=== PATIENT | female | born 1975 | race Caucasian/White ===

== ENCOUNTER 2024-08-24 06:28 | Day surgery (SDC) | payer OTHER, SELFPAY ==
[2024-08-24] MEDS: sodium chloride 0.9% 1,000 ML 30 ML IV (06:40)
[2024-08-24 06:45] VITALS: BP 120/86; PULSE 84; RESP 18; TEMP 36.1; O2SAT 97; BMI 31.0
--- NOTE | 2024-08-24 07:01 | ANES.PREANE2 ---
Pre-Anesthetic Assessment Height/Weight: Height 1.7 m Weight 89.811 kg Temp Pulse Resp BP Pulse Ox O2 Del Method 97.0 F L 84 18 120/86 97 Room Air 08/24/24 06:45 08/24/24 06:45 08/24/24 06:45 08/24/24 06:45 08/24/24 06:45 08/24/24 06:45 Operation Date: 08/24/24 07:30 Proposed Procedures p Colonoscopy [id number] G0105 Z12.11(Not Applicable) - Christiano Mansfield MD Was Beta Simone taken within 24 hours: N/A Was Clonidine taken within 24 hours: N/A (no) Last intake: Intake Last Liquid Date 08/23/24 Last Liquid Time 22:30 Last Solid Date 08/22/24 Last Solid Time 20:00 Social Alcohol (between 6-8 drinks a week) and Tobacco vape History/ROS No significant history except as noted Pulmonary None reported CV/HEM None reported Anesthetic Plan ASA status: 2 Anesthesia: MAC Medications/Allergies Home Medications ?Medication ?Instructions ?Recorded ?Confirmed ?Last Taken ?Type atorvastatin 10 mg tablet 40 mg PO DAILY 07/27/24 08/18/24 08/24/24 History clonazepam 1 mg tablet 1 mg PO QID 07/27/24 08/18/24 08/24/24 05:15 History methocarbamol 500 mg tablet 500 mg PO PRN PRN Muscle Spasm 07/27/24 08/18/24 08/24/24 History quetiapine 400 mg tablet,extended 800 mg PO BEDTIME 07/27/24 08/18/24 08/24/24 History release 24 hr suvorexant 10 mg tablet (Belsomra) 10 mg PO .at bedtime 30 days #30 07/29/24 08/18/24 08/24/24 Rx tabs Allergies Allergy/AdvReac Type Severity Reaction Status Date / Time latex Allergy Unknown Verified 08/24/24 06:41 [facility] Anesthesia Medical History Family history of colon cancer in mother Insomnia Anxiety Hyperlipemia History of ganglion cyst Surgical History History of knee surgery 30+ years ago, doesn't remember which knee History of cholecystectomy History of History of hysterectomy Has left ovary Family History Grandfather Bladder cancer paternal Mother Colon cancer, Onset Age: 42 Grandmother Breast cancer maternal Social History Smoking and tobacco/nicotine status: current every day tobacco/nicotine user e-cigarettes E-Cigarette Details: vaporizer device Alcohol intake: current Alcohol intake frequency: few times a week Substance/Drug Use: never Adopted: No Caregiver/support person: No Lives independently: No Household members: significant other service: No Current occupational status: employed Sexually active: Yes Do you think of yourself as: Straight/Heterosexual Current gender identity: Female Data Anesthesia Cardiac Studies: No Data to Display
--- NOTE | 2024-08-24 07:05 | W.PM.OPSUD ---
Surgery/Procedure H&P Update DATE OF PROCEDURE: August 24, 2024 DATE H&P PERFORMED: 08/02/24 H&P UPDATE INFORMATION: I have reviewed H&P completed within last 30 days, I have examined patient prior to procedure and No changes to prior documentation PLANNED PROCEDURE: Operation Date: 08/24/24 07:30 Proposed Procedures p Colonoscopy [id number] G0105 Z12.11(Not Applicable) - Christiano Mansfield MD
[2024-08-24 07:56] VITALS: BP 113/64; PULSE 75; RESP 12; TEMP 36.1; O2SAT 100
--- NOTE | 2024-08-24 08:30 | ANE.PACU2 ---
Inpatient post-anesthesia follow up: Airway intact: Yes Vital signs: Temperature 97.0 F Pulse Rate 75 Respiratory Rate 12 Blood Pressure 113/64 Pulse Oximetry 100 Oxygen Delivery Me thod Room Air Oxygen Flow Rate Fraction of Inspir ed Oxygen Hydration adequate: Yes Nausea and vomiting: No Pain level: 1 Mental status: Baseline
== END 2024-08-24 08:30 | disposition home or self-care (01) ==
PROVIDERS: PCP Registered Nurse; Visit Provider Student in an Organized Health Care Education/Training Program
PROC: 0DJD8ZZ Inspection of Lower Intestinal Tract, Via Natural or Artificial Opening Endoscopic (ICD-10-PCS; CPT 45378; principal; 2024-08-24 07:30)
DX: Z12.11 Encounter for screening for malignant neoplasm of colon (principal); E78.5 Hyperlipidemia, unspecified; F17.290 Nicotine dependence, other tobacco product, uncomplicated; Z79.899 Other long term (current) drug therapy; Z91.040 Latex allergy status; Z80.0 Family history of malignant neoplasm of digestive organs
CPT/HCPCS: 45378; J2704; J7030

== ENCOUNTER → 2024-12-02 10:33 | Outpatient (BNVA) | payer OTHER, SELFPAY | PROVIDERS: PCP Registered Nurse; Visit Provider Registered Nurse | DX: L98.9 Disorder of the skin and subcutaneous tissue, unspecified (principal) | CPT/HCPCS: 88305 ==

== ENCOUNTER → 2025-01-03 08:26 | Outpatient (BNVA) | payer OTHER, SELFPAY | PROVIDERS: PCP Registered Nurse; Visit Provider Registered Nurse | DX: Z13.6 Encounter for screening for cardiovascular disorders (principal) | CPT/HCPCS: 80053; 80061; 85025 ==

== ENCOUNTER 2025-01-12 08:42 | Outpatient (CLI) | payer OTHER, SELFPAY ==
--- NOTE | 2025-01-12 08:20 | MM_ITS ---
WS: [id number] BILATERAL SCREENING DIGITAL TOMOSYNTHESIS MAMMOGRAM WITH CAD HISTORY: Z12.31 - Encounter for screening mammogram for malignant ... COMPARISON: 03/13/2021 Bilateral CC and MLO views with tomosynthesis and synthetic mammography submitted. Computer aided detection analyzed. Breast composition: The breasts are heterogeneously dense, which may obscure small masses. No suspicious masses, microcalcifications or architectural distortion. MM/MM scr tomosynthesis [id number] IMPRESSION: BI-RADS: 1 - Negative FOLLOW UP: 1 Year Follow-up
== END 2025-01-12 08:43 | disposition home or self-care (01) ==
LOC: RAD 08:43
PROVIDERS: PCP Registered Nurse; Visit Provider Registered Nurse
DX: Z12.31 Encounter for screening mammogram for malignant neoplasm of breast (principal); R92.333 Mammographic heterogeneous density, bilateral breasts
CPT/HCPCS: 77063; 77067

== ENCOUNTER → 2025-03-04 13:03 | Outpatient (BNVA) | payer OTHER, SELFPAY | PROVIDERS: PCP Registered Nurse; Visit Provider Emergency Medicine | DX: R35.0 Frequency of micturition (principal); N39.0 Urinary tract infection, site not specified | CPT/HCPCS: 81000; 87086 ==